=== PATIENT | female | born 1945 | race Caucasian/White ===

== ENCOUNTER 2019-07-27 22:29 | Emergency (ER) | payer OTHER ==
[~2019-07-27] VITALS: Ht 170.2 cm; Wt 70.3 kg
[2019-07-27] MEDS ORDERED: [UNRECOGNIZED DRUG - OTHER] (22:51)
[2019-07-27] MEDS ORDERED: VENTOLIN (22:52)
[2019-07-27] MEDS ORDERED: SYMBICORT (22:53)
== END 2019-07-28 00:24 | disposition home or self-care (01) ==
LOC: ER 22:29
DX: S81.821A Laceration with foreign body, right lower leg, initial encounter (principal); W45.8XXA Other foreign body or object entering through skin, initial encounter; Y93.89 Activity, other specified; Y92.89 Other specified places as the place of occurrence of the external cause; Y99.8 Other external cause status